=== PATIENT | male | born 1990 | race African-American/Black ===

== ENCOUNTER 2018-12-24 18:32 | Inpatient (IN) | payer MEDICARE, OTHER ==
[~2018-12-24] VITALS: Ht 189.2 cm; Wt 116.8 kg
[~2018-12-24 18:32] MED LIST: ALBUTEROL
[2018-12-24] MEDS ORDERED: ALBUTEROL (0.083%) 2.5MG/3ML NEB HHN STA (18:40)
[2018-12-24] MEDS ORDERED: IPRATROPIUM BROMIDE (0.02%) 0.5MG/2.5ML NEB HHN STA (18:40)
[2018-12-24] MEDS ORDERED: MAGNESIUM 2 G PREMIX 50 ML IV ONE (18:45)
[2018-12-24 19:10] LABS: BASOPHILS % 0.2 % (0.0-2.0); EOSINOPHILS % 1.1 % (0.0-5.0); HEMATOCRIT. 44.2 % (42.0-52.0); HEMOGLOBIN. 14.6 g/dL (14.0-18.0); LYMPHOCYTES % 30.1 % (20.0-50.0); MEAN CORPUSCULAR HEMOGLOBIN 28.7 pg (28.0-32.0); MEAN CORPUSCULAR VOLUME 86.8 fL (80.0-94.0); MEAN PLATELET VOLUME 7.5 fl (7.4-10.4); MONOCYTES % 10.9 % (2.0-8.0); NEUTROPHILS % 57.7 % (40.0-76.0); PLATELET 245 x1000/uL (130-400); RED CELL DISTRIBUTION WIDTH 13.9 % (11.6-14.6)
[2018-12-24 19:12] LABS: CHLORIDE 109 mEq/L (98-107)
[2018-12-24] MEDS ORDERED: LORAZEPAM 2MG/ML CPJ IV ONE (21:45)
[2018-12-24] MEDS ORDERED: ALBUTEROL (0.5%) 2.5MG/0.5ML NEB HHN ONE (21:45)
[2018-12-24] MEDS ORDERED: ALBUTEROL (0.083%) 2.5MG/3ML NEB ONE (21:47)
[2018-12-24 23:44] LABS: *AMPHETAMINES SCREEN URINE NEGATIVE (NEGATIVE); *BARBITURATES SCREEN URINE NEGATIVE (NEGATIVE); *BENZODIAZEPINES SCREEN URINE NEGATIVE (NEGATIVE)
[2018-12-24 23:45] LABS: *COCAINE SCREEN URINE NEGATIVE (NEGATIVE); CANNABINOID URINE SCREEN PRESUMTIVE POSITIVE (NEGATIVE); METHADONE URINE SCREEN NEGATIVE (NEGATIVE); OPIATES URINE SCREEN NEGATIVE (NEGATIVE); PHENCYCLIDINE URINE SCREEN NEGATIVE (NEGATIVE)
[2018-12-25] MEDS ORDERED: GUAIFENESIN 200MG/10ML SUGAR FREE UDC PO PRN (01:00)
[2018-12-25] MEDS ORDERED: IPRATROPIUM/ALBUTEROL 0.5-3(2.5)MG/3ML NEB HHN SCH (01:00)
[2018-12-25] MEDS ORDERED: ONDANSETRON HCL 4MG/2ML INJ IV PRN (01:00)
[2018-12-25] MEDS ORDERED: TEMAZEPAM 15MG CAPSULE PO PRN (01:00)
[2018-12-25] MEDS ORDERED: CLONIDINE 0.1MG TABLET PO PRN (01:00)
[2018-12-25] MEDS ORDERED: IPRATROPIUM/ALBUTEROL 0.5-3(2.5)MG/3ML NEB INH PRN (01:00)
[2018-12-25] MEDS ORDERED: DIPHENHYDRAMINE 50MG/ML VIAL IV PRN (01:00)
[2018-12-25] MEDS ORDERED: MAGNESIUM/ALUMINUM HYDROXIDE/SIMETHICONE 30ML UDC PO PRN (01:00)
[2018-12-25] MEDS ORDERED: MAGNESIUM HYDROXIDE 400MG/5ML 30ML UDC PO PRN (01:00)
[2018-12-25 01:10] LABS: BG BASE EXCESS 0.5 mmol/L (-2.0-2.0); BG CARBOXYHEMOGLOBIN 0.5 % (0.5-1.5); BG DEOXYHEMOGLOBIN 6.4 % (0.0-5.0); BG FRACTION INSPIRED OXYGEN 21; BG HCO3 ACT 25.6 mmol/L (22.0-26.0); BG METHEMOGLOBIN 0.3 % (0.0-1.5); BG OXYGEN SATURATION 93.5 % (92.0-98.5); BG OXYHEMOGLOBIN 92.8 % (94.0-97.0); BG PH 7.393 (7.350-7.450); BG PO2 69.4 mmHg (75.0-100.0); BG SAMPLE SITE LEFT RADIAL; BG TOTAL HEMOGLOBIN 14.5 g/dL (12.0-18.0); BG VENT MODE ROOM AIR
[2018-12-25] MEDS ORDERED: METHYLPREDNISOLONE SOD SUCC 125 MG/2 ML VIAL IV ONE (01:30)
[2018-12-25] MEDS ORDERED: ALBUTEROL (0.5%) 2.5MG/0.5ML NEB HHN ONE (01:30)
[2018-12-25 05:00] VITALS: BP_SYST 146; BP_SYST 148; BP_DIAS 76; BP_DIAS 94
[2018-12-25] MEDS: LORAZEPAM 0.5MG TABLET PO PRN (05:42)
[2018-12-25] MEDS: ACETAMINOPHEN 325MG TABLET PO PRN ×2 (05:50→13:11)
[2018-12-25] MEDS: SODIUM CHLORIDE 0.9% INJ 3ML FLUSH IVF SCH ×3 (05:51→21:20)
[2018-12-25] MEDS ORDERED: DEXT 5%/0.45% NACL 1000ML 1,000 ML IV SCH (06:00)
[2018-12-25 08:00] VITALS: BP 128/55
[2018-12-25] MEDS: IPRATROPIUM/ALBUTEROL 0.5-3(2.5)MG/3ML NEB HHN SCH ×4 (08:31→21:35)
[2018-12-25] MEDS: FAMOTIDINE 20MG TABLET PO SCH ×2 (09:13→21:20)
[2018-12-25] MEDS ORDERED: METHYLPREDNISOLONE SOD SUCC 125 MG/2 ML VIAL IV SCH (10:00)
[2018-12-25 12:00] VITALS: BP 129/70
[2018-12-25] MEDS ORDERED: FAMOTIDINE 20MG TABLET PO SCH (15:30)
[2018-12-25] MEDS ORDERED: CEFTRIAXONE 500 MG in DEXTROSE 5% WATER 50 ML IV SCH (15:30)
[2018-12-25 16:00] VITALS: BP 118/67
[2018-12-25] MEDS: METHYLPREDNISOLONE SOD SUCC 125 MG/2 ML VIAL IV SCH ×2 (16:25→21:19)
[2018-12-25] MEDS: MONTELUKAST SODIUM 10MG TABLET PO SCH (16:26)
[2018-12-25] MEDS: CEFTRIAXONE 1 G PREMIX 50 ML IV SCH (16:26)
[2018-12-25] MEDS: AZITHROMYCIN 500 MG in DEXT 5% WATER 250 ML IV SCH (18:44)
[2018-12-25 20:00] VITALS: BP 151/89
[2018-12-25] MEDS: LORATADINE 10MG TABLET PO SCH (21:20)
[2018-12-26] VITALS: BP 151/86
[2018-12-26] MEDS: IPRATROPIUM/ALBUTEROL 0.5-3(2.5)MG/3ML NEB HHN SCH ×6 (01:01→21:19)
[2018-12-26] MEDS: METHYLPREDNISOLONE SOD SUCC 125 MG/2 ML VIAL IV SCH ×4 (03:39→21:27)
[2018-12-26 04:00] VITALS: BP 151/82
[2018-12-26] MEDS: CEFTRIAXONE 1 G PREMIX 50 ML IV SCH ×2 (04:54→16:15)
[2018-12-26] MEDS: SODIUM CHLORIDE 0.9% INJ 3ML FLUSH IVF SCH ×3 (06:31→21:28)
[2018-12-26 08:00] VITALS: BP 147/70
[2018-12-26] MEDS: FAMOTIDINE 20MG TABLET PO SCH ×2 (10:42→21:27)
[2018-12-26 12:00] VITALS: BP 143/72
[2018-12-26 16:00] VITALS: BP 124/81
[2018-12-26] MEDS: MONTELUKAST SODIUM 10MG TABLET PO SCH (16:15)
[2018-12-26] MEDS: AZITHROMYCIN 500 MG in DEXT 5% WATER 250 ML IV SCH (18:48)
[2018-12-26 20:00] VITALS: BP 135/78
[2018-12-26] MEDS ORDERED: TEMAZEPAM 15MG CAPSULE PO SCH (21:00)
[2018-12-26] MEDS: LORATADINE 10MG TABLET PO SCH (21:27)
[2018-12-27] VITALS (7 sets, daily range): BP systolic 129–144; BP diastolic 68–87
[2018-12-27] MEDS: IPRATROPIUM/ALBUTEROL 0.5-3(2.5)MG/3ML NEB HHN SCH ×6 (00:21→20:47)
[2018-12-27] MEDS: LORAZEPAM 0.5MG TABLET PO PRN (01:04)
[2018-12-27] MEDS: METHYLPREDNISOLONE SOD SUCC 125 MG/2 ML VIAL IV SCH ×4 (04:52→22:07)
[2018-12-27] MEDS: CEFTRIAXONE 1 G PREMIX 50 ML IV SCH ×2 (04:53→17:43)
[2018-12-27] MEDS: SODIUM CHLORIDE 0.9% INJ 3ML FLUSH IVF SCH ×3 (05:01→22:06)
[2018-12-27] MEDS: FAMOTIDINE 20MG TABLET PO SCH ×2 (09:19→20:49)
[2018-12-27] MEDS: MONTELUKAST SODIUM 10MG TABLET PO SCH (17:43)
[2018-12-27] MEDS: AZITHROMYCIN 500 MG in DEXT 5% WATER 250 ML IV SCH (18:26)
[2018-12-27] MEDS: GUAIFENESIN 600MG ER TABLET PO SCH (20:49)
[2018-12-27] MEDS: LORATADINE 10MG TABLET PO SCH (20:49)
[2018-12-27] MEDS ORDERED: TRAZODONE HCL 50MG TABLET PO SCH (21:00)
[2018-12-28] VITALS: BP 147/67
[2018-12-28] MEDS: IPRATROPIUM/ALBUTEROL 0.5-3(2.5)MG/3ML NEB HHN SCH ×4 (01:15→12:16)
[2018-12-28] MEDS: LORAZEPAM 0.5MG TABLET PO PRN (03:51)
[2018-12-28 04:00] VITALS: BP 156/90
[2018-12-28] MEDS: CEFTRIAXONE 1 G PREMIX 50 ML IV SCH (05:54)
[2018-12-28] MEDS: SODIUM CHLORIDE 0.9% INJ 3ML FLUSH IVF SCH (05:56)
[2018-12-28] MEDS: METHYLPREDNISOLONE SOD SUCC 125 MG/2 ML VIAL IV SCH (06:07)
[2018-12-28 08:00] VITALS: BP 139/97
[2018-12-28] MEDS: GUAIFENESIN 600MG ER TABLET PO SCH (08:38)
[2018-12-28] MEDS: FAMOTIDINE 20MG TABLET PO SCH (08:38)
[2018-12-28 14:54] VITALS: BP 135/88
[2018-12-29] MEDS ORDERED: AZITHROMYCIN 500 MG TABLET PO SCH (18:00)
== END 2018-12-28 15:32 | disposition home or self-care (01) | DRG 189 ==
LOC: ER 18:36 → 5WST 12-25 00:15 → EDBEDREQTM 12-25 00:30 → EDBEDREQ 12-25 00:30 → EDBEDREQDT 12-25 00:30 → ENRESERV 12-25 02:33
PROVIDERS: ADMIT Internal Medicine; ATTEND Internal Medicine
PROC: 5A09357 Assistance with Respiratory Ventilation, Less than 24 Consecutive Hours, Continuous Positive Airway Pressure (ICD-10-PCS; principal; 2018-12-25)
DX: J96.01 Acute respiratory failure with hypoxia (principal); J45.901 Unspecified asthma with (acute) exacerbation; R65.10 Systemic inflammatory response syndrome (SIRS) of non-infectious origin without acute organ dysfunction; J96.02 Acute respiratory failure with hypercapnia; J20.9 Acute bronchitis, unspecified; F12.90 Cannabis use, unspecified, uncomplicated; Z60.2 Problems related to living alone; Z71.51 Drug abuse counseling and surveillance of drug abuser; Z79.899 Other long term (current) drug therapy
CPT/HCPCS: 36415; 36600; 71045; 80305; 82375; 82805; 83880; 84484; 93005; 94640; 94660; 99285; J0456; J0696; J1200; J2060; J2930; J3475; J7060; J7611; J7620